=== PATIENT | male | born 1950 | race Caucasian/White ===

== ENCOUNTER → 2020-07-08 12:42 | Outpatient (BNVA) | payer OTHER, SELFPAY | PROVIDERS: Family Provider Internal Medicine; PCP Emergency Medicine Emergency Medical Services; Visit Provider Licensed Practical Nurse | DX: G62.9 Polyneuropathy, unspecified (principal); R20.0 Anesthesia of skin; R20.2 Paresthesia of skin | CPT/HCPCS: 99204 ==

== ENCOUNTER → 2020-08-06 10:48 | Outpatient (BNVA) | payer OTHER, SELFPAY | PROVIDERS: Family Provider Internal Medicine; PCP Emergency Medicine Emergency Medical Services; Referring Provider Licensed Practical Nurse; Visit Provider Specialist | DX: R20.0 Anesthesia of skin (principal); R20.2 Paresthesia of skin; G62.9 Polyneuropathy, unspecified | CPT/HCPCS: 95909 ==

== ENCOUNTER → 2020-08-18 12:54 | Outpatient (BNVA) | payer OTHER, SELFPAY | PROVIDERS: Family Provider Internal Medicine; PCP Emergency Medicine Emergency Medical Services; Visit Provider Licensed Practical Nurse | DX: G62.89 Other specified polyneuropathies (principal) | CPT/HCPCS: 99213 ==

== ENCOUNTER 2020-10-20 06:00 | Outpatient (RCR) | payer OTHER, SELFPAY | END 2020-11-05 23:59 | disposition home or self-care (01) | LOC: MPT 06:00 | PROVIDERS: Family Provider Internal Medicine; PCP Emergency Medicine Emergency Medical Services; Referring Provider Emergency Medicine Emergency Medical Services; Visit Provider Emergency Medicine Emergency Medical Services | DX: R20.0 Anesthesia of skin (principal) | CPT/HCPCS: 97110; 97161 ==

== ENCOUNTER → 2021-04-22 15:19 | Outpatient (BNVA) | payer OTHER, SELFPAY | PROVIDERS: Family Provider Internal Medicine; PCP Emergency Medicine Emergency Medical Services; Visit Provider Surgery | DX: L02.214 Cutaneous abscess of groin (principal) | CPT/HCPCS: 88304 ==

== ENCOUNTER → 2022-07-20 12:13 | Outpatient (BNVA) | payer OTHER, SELFPAY | PROVIDERS: Family Provider Internal Medicine; PCP Emergency Medicine Emergency Medical Services; Visit Provider Internal Medicine | DX: E11.9 Type 2 diabetes mellitus without complications (principal); E89.0 Postprocedural hypothyroidism; E78.2 Mixed hyperlipidemia; G62.9 Polyneuropathy, unspecified; E53.8 Deficiency of other specified B group vitamins; R22.1 Localized swelling, mass and lump, neck; E66.9 Obesity, unspecified; Z68.33 Body mass index [BMI] 33.0-33.9, adult; Z79.84 Long term (current) use of oral hypoglycemic drugs; Z79.4 Long term (current) use of insulin | CPT/HCPCS: 36415; 80053; 80061; 82306; 82607; 83036; 84439; 84443; 99214 ==

== ENCOUNTER 2022-09-01 15:16 | Outpatient (CLI) | payer OTHER, SELFPAY ==
--- NOTE | 2022-09-01 15:15 | CT_ITS ---
WS: [id number] CT NECK WITH CONTRAST HISTORY: neck mass TECHNIQUE: Contiguous 5 mm axial images are performed through the neck with intravenous contrast. Sag ittal and coronal reformats are also submitted. All CT scans at [facility] use at least one o f these dose optimization techniques: automated exposure control; mA and/or kV adjustment per patient size (includes targeted exams where dose is matched to clinical indication); or iterative reconstruc tion. CONTRAST: CONTRAST: Omnipaque 350; 95 mL IV. DLP: 295.23 mGy.cm COMPARISON: None available. Markers are placed in the areas of palpable abnormalities. These markers are placed along the inferio r RIGHT neck near the level of the hyoid bone and cricoid. There are no underlying masses. These palp able areas correspond to prominent fat pads. There are a few adjacent small vessels which are partial ly calcified. There is asymmetry and increased soft tissue in the LEFT vallecula extending to the glossoepiglottic fold. There is mild enhancement and near complete filling of the vallecula. No additional abnormality . Nasal and oropharynx are negative. Torus tubarius and fossa of Rosenmuller and parapharyngeal fat are normal. No significant lymphadenopathy is identified. Small atrophic thyroid. No significant amount of thyroid tissue is identified. No history of prior re moval. The parotid and submandibular glands are negative. Moderate spondylitic changes throughout the cervical spine. Visualized portions of the skull base demonstrate no abnormalities. Orbits and globes are within norm al limits. No soft tissue masses. Mucous retention cysts in the RIGHT maxillary sinus. No air-fluid levels. Paraseptal emphysematous changes at the lung apices. Extensive atherosclerotic calcification within the visualized aorta and great vessels. At least moder ate calcification involving the carotid bifurcations and proximal internal carotid arteries. CT/CT neck w con* [id number] Impression: 1. Palpable areas along the inferior bilateral neck corresponds to prominent f at pads. 2. Soft tissue thickening with mild enhancement filling the LEFT vallecula ext ending to the glossoepiglottic fold. 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 Direct visualization recommended. 3. No adenopathy. 4. Moderate atherosclerotic changes within the visualized aorta and carotid ar teries.
[2022-09-01] MEDS: iohexol 350 mg/mL 100 mL Btl IV (17:17)
== END 2022-09-01 15:17 | disposition home or self-care (01) ==
LOC: RAD 15:16
PROVIDERS: Family Provider Internal Medicine; PCP Emergency Medicine Emergency Medical Services; Visit Provider Internal Medicine
DX: R22.1 Localized swelling, mass and lump, neck (principal)
CPT/HCPCS: 70491

== ENCOUNTER → 2022-10-19 13:25 | Outpatient (BNVA) | payer OTHER, SELFPAY | PROVIDERS: Family Provider Internal Medicine; PCP Emergency Medicine Emergency Medical Services; Visit Provider Internal Medicine | DX: E11.9 Type 2 diabetes mellitus without complications (principal); E89.0 Postprocedural hypothyroidism; R20.0 Anesthesia of skin; R20.2 Paresthesia of skin; E78.2 Mixed hyperlipidemia; G62.9 Polyneuropathy, unspecified; E53.8 Deficiency of other specified B group vitamins; E66.9 Obesity, unspecified; R22.1 Localized swelling, mass and lump, neck; Z68.34 Body mass index [BMI] 34.0-34.9, adult; Z79.84 Long term (current) use of oral hypoglycemic drugs; Z79.4 Long term (current) use of insulin | CPT/HCPCS: 99214 ==

== ENCOUNTER → 2022-12-19 12:37 | Outpatient (BNVA) | payer OTHER, SELFPAY | PROVIDERS: Family Provider Internal Medicine; PCP Emergency Medicine Emergency Medical Services; Visit Provider Otolaryngology | DX: Z71.1 Person with feared health complaint in whom no diagnosis is made (principal); J38.7 Other diseases of larynx | CPT/HCPCS: 31575; 99203 ==

== ENCOUNTER → 2023-02-16 14:15 | Outpatient (BNVA) | payer OTHER, SELFPAY | PROVIDERS: Family Provider Internal Medicine; PCP Emergency Medicine Emergency Medical Services; Visit Provider Internal Medicine | DX: E11.42 Type 2 diabetes mellitus with diabetic polyneuropathy (principal); E89.0 Postprocedural hypothyroidism; R20.0 Anesthesia of skin; R20.2 Paresthesia of skin; E78.2 Mixed hyperlipidemia; E53.8 Deficiency of other specified B group vitamins; E66.9 Obesity, unspecified; R22.1 Localized swelling, mass and lump, neck; Z79.4 Long term (current) use of insulin; Z79.84 Long term (current) use of oral hypoglycemic drugs; Z68.35 Body mass index [BMI] 35.0-35.9, adult | CPT/HCPCS: 99214 ==

== ENCOUNTER → 2023-03-03 08:30 | Outpatient (BNVA) | payer OTHER, SELFPAY | PROVIDERS: Family Provider Internal Medicine; PCP Emergency Medicine Emergency Medical Services; Visit Provider Internal Medicine | DX: E11.42 Type 2 diabetes mellitus with diabetic polyneuropathy (principal); E78.2 Mixed hyperlipidemia; E53.8 Deficiency of other specified B group vitamins; E66.9 Obesity, unspecified; R22.1 Localized swelling, mass and lump, neck; E89.0 Postprocedural hypothyroidism; Z79.890 Hormone replacement therapy; Z79.84 Long term (current) use of oral hypoglycemic drugs; Z79.4 Long term (current) use of insulin; Z68.34 Body mass index [BMI] 34.0-34.9, adult | CPT/HCPCS: 36415; 84439; 84443; 84480; 99214 ==

== ENCOUNTER 2023-04-17 09:27 | Outpatient (CLI) | payer OTHER, SELFPAY ==
--- NOTE | 2023-04-17 09:41 | USCV_ITS ---
Barrett Lara Age: 72 Gender: M : 1950 Exam Date: 04/17/2023 09:59 Ordering Phys: Kane Christine DO Technologist: CADY Exam Location: [facility] [place] Indication: AAA SCREENING HISTORY: Diameter (cm) AP x Transverse x Length Velocity (cm/s) Waveform Prox Aorta: 2.28 x 1.97 x 53.70 Mid Aorta: 2.80 x 2.46 x 80.60 Distal Aorta: 1.49 x 2.16 x 68.80 Right Iliac Prox: 1.00 x 1.57 x 124.60 Left Iliac Prox: 0.85 x 1.05 x 131.10 Stent Prox Landing x x Aneurysmal Sac Max x x Lt Lat Sac Dim Rt Lat Sac Dim Stent Dist Landing x x Right Iliac Stent x x Left Iliac Stent x x Right Renal Art Left Renal Art FINDINGS: Comparison: none available. A complete assessment of the abdominal aorta was not possible. Ectatic abdominal aorta with evidence of atherosclerotic plaque noted. No evidence of abdominal aortic aneurysm. CONCLUSIONS Limited by body habitus. No AAA seen. Dr. Shannon Wilcox DO (Electronically Signed) Final Date: 17 April 2023 11:23 S
== END 2023-04-17 09:28 | disposition home or self-care (01) ==
LOC: RAD 09:28
PROVIDERS: PCP Emergency Medicine Emergency Medical Services; Visit Provider Emergency Medicine Emergency Medical Services
DX: Z13.6 Encounter for screening for cardiovascular disorders (principal); I77.811 Abdominal aortic ectasia; I70.0 Atherosclerosis of aorta
CPT/HCPCS: 76706

== ENCOUNTER → 2023-06-06 14:36 | Outpatient (BNVA) | payer OTHER, SELFPAY | PROVIDERS: PCP Emergency Medicine Emergency Medical Services; Visit Provider Internal Medicine Pulmonary Disease | DX: J30.2 Other seasonal allergic rhinitis (principal); Z87.891 Personal history of nicotine dependence; J44.9 Chronic obstructive pulmonary disease, unspecified; Z12.2 Encounter for screening for malignant neoplasm of respiratory organs; G47.33 Obstructive sleep apnea (adult) (pediatric); J98.6 Disorders of diaphragm | CPT/HCPCS: 36415; 82785; 86003; 99204 ==

== ENCOUNTER → 2023-08-17 11:08 | Outpatient (BNVA) | payer OTHER, SELFPAY | PROVIDERS: PCP Emergency Medicine Emergency Medical Services; Visit Provider Internal Medicine | DX: E11.42 Type 2 diabetes mellitus with diabetic polyneuropathy; E89.0 Postprocedural hypothyroidism; E78.2 Mixed hyperlipidemia; E53.8 Deficiency of other specified B group vitamins; E66.9 Obesity, unspecified; Z79.84 Long term (current) use of oral hypoglycemic drugs; Z79.4 Long term (current) use of insulin; Z68.35 Body mass index [BMI] 35.0-35.9, adult | CPT/HCPCS: 99214 ==

== ENCOUNTER 2023-09-11 10:21 | Outpatient (CLI) | payer OTHER, SELFPAY ==
--- NOTE | 2023-09-11 10:31 | XRR_ITS ---
PROCEDURE INFORMATION: Exam: XR Left Hand Exam date and time: 09/11/2023 10:35 AM Age: 72 years old Clinical indication: Screening exam; Pre mri; Patient HX: Patient thinks a piece of metal is in left thumb. Patient believes left thumb is infected x 1 year; Additional info: ? Metallic foreign body/prior to mri TECHNIQUE: Imaging protocol: Radiologic exam of the left hand. Views: 3 or more views. COMPARISON: No relevant prior studies available. FINDINGS: Bones/joints: There is advanced osteoarthritis noted at the 1st carpometacarpal joint and at the 5th DIP joint. Soft tissues: There is no evidence of radiopaque foreign body. XR/XR hand LT 2V [id number] IMPRESSION: No evidence of metallic foreign body.
== END 2023-09-11 10:22 | disposition home or self-care (01) ==
PROVIDERS: PCP Emergency Medicine Emergency Medical Services; Visit Provider Specialist
DX: S60.552A Superficial foreign body of left hand, initial encounter (principal); X58.XXXA Exposure to other specified factors, initial encounter
CPT/HCPCS: 73120

== ENCOUNTER 2023-10-09 12:04 | Emergency (ER) | payer OTHER, SELFPAY ==
[2023-10-09 12:11] VITALS: BP 130/73; PULSE 53; RESP 18; TEMP 36.4; O2SAT 96; BMI 40.7
--- NOTE | 2023-10-09 13:20 | W.ED.SKABFB ---
HPI - Skin/Abscess/Foreign Bdy General: Chief complaint: Skin/Abscess/Foreign Body Stated complaint: possible spider bite Time Seen by Provider: 10/09/23 12:55 Source: patient Mode of arrival: ambulatory Limitations: no limitations History of Present Illness: Patient is a 72-year-old male who presents to ED today with what he believes is a spider bite. Patient states he has had a cyst to the top portion of his right shoulder/clavicular region for years . He feels like the spider bit him right next to the cyst as it is now red, tender, and swollen. [facility] which he has yet to fill. They did not perform incision and drainage. He has no other complaints at this time. MD complaint: abscess/boil Onset (ago): day(s) Tetanus up to date: yes Location: chest Severity: moderate Pain Consistency: constant Relieving factors: none Exacerbating factors: none Associated symptoms: Reports no associated symptoms; Deny chills or fever(s) Treatments prior to arrival: attempted to drain pus at home Review of Systems Const: Denies: fever(s), chills, body aches, fatigue or malaise Skin/Breast: Reports: other (abscess) [facility] ED PFSH: Medical History Type 2 diabetes mellitus History of cataract 2020 Diabetes Axonal sensorimotor neuropathy Peripheral neuropathy Essential hypertension Hyperlipidemia Gout COPD (chronic obstructive pulmonary disease) Hypothyroidism Sleep apnea Obesity Type 2 diabetes mellitus Surgical History H/O adenoidectomy History of colonoscopy 2012 History of tonsillectomy 1957 No pertinent past surgical history Family History Father No problems noted. Mother No problems noted. Other Family history non-contributory Social History Smoking and tobacco/nicotine status: former use of tobacco/nicotine Quit status (tobacco/nicotine): has quit using Year quit tobacco: 2014 Former quit date comment: 1-2 ppd X 40 years Alcohol intake: current Alcohol intake frequency: holidays/special occasions only Substance/Drug Use: never Household members: children Marital status: Current occupational status: retired Physical Exam Const: COMMON NORMALS: no acute distress, patient oriented x3, no limitations and alert NUTRITIONAL APPEARANCE: obese ORIENTATION/CONSCIOUSNESS: Yes awake, Yes oriented to person, Yes oriented to place and Yes oriented to time Neck/C-Spine: NECK IMAGES: 1. infected sebaceous cyst Resp: COMMON NORMALS: normal respiratory effort and clear to auscultation bilaterally AUSCULTATION: clear to auscultation bilaterally Cardio: COMMON NORMALS: regular rate and regular rhythm RATE: regular rate RHYTHM: regular rhythm Neuro: COMMON NORMALS: patient oriented x3 SENSORIUM/ORIENTATION: Yes alert, Yes oriented to person, Yes oriented to place and Yes oriented to time Skin: NARRATIVE SKIN EXAM: Infected sebaceous cyst to right superior shoulder/clavicular region Procedures Abscess I/D Site: chest Side (if applicable): right Local Anesthetic: lidocaine 1% Amount of anesthesia used (mL): 3.0 Technique: incised with #11 blade Amount of fluid expressed (mL): 6.0 Packing used?: plain Course Vital Signs: Vital signs: Vital Signs Temperature 97.6 F 10/09/23 12:11 Pulse Rate 48 L 10/09/23 14:22 Respiratory Rate 18 10/09/23 12:11 Blood Pressure 125/74 10/09/23 14:22 Pulse Oximetry 97 10/09/23 14:22 Oxygen Delivery Me thod Room Air 10/09/23 12:11 MDM - Skin/Abscess/Foreign Bdy Medicial Decision Making Patient here with an infected sebaceous cyst. This was incised and drained. He has a prescription for doxycycline that he is yet to fill. Recommend he fill this and we will get him set up with general surgery and they can discuss elective cyst removal. No radiology studies performed this visit Discharge Plan Discharge Patient Disposition: Home Clinical Impression: Infected sebaceous cyst Condition: Stable Prescriptions: No Action acyclovir 800 mg tablet 800 mg PO TID ipratropium-albuterol 0.5 mg-3 mg(2.5 mg base)/3 mL solution for nebulization 3 ml INHALATION Q6H PRN albuterol sulfate 90 mcg/actuation HFA aerosol inhaler 2 puff INHALATION Q6H PRN allopurinol 300 mg tablet 150 mg PO DAILY budesonide-formoterol 160-4.5 mcg/actuation HFA aerosol inhaler 2 puff INHALATION BID cholecalciferol (vitamin D3) 25 mcg (1,000 unit) capsule 25 mcg PO BID clonidine HCl 0.1 mg tablet 0.05 mg PO BID diltiazem HCl 180 mg capsule,extended release 24hr 180 mg PO DAILY empagliflozin 25 mg tablet 12.5 mg PO DAILY fluticasone propionate [Allergy Relief (fluticasone)] 50 mcg/actuation spray,suspension 2 spray INTRANASAL DAILY Rx Instructions: administer into each nostril furosemide 40 mg tablet 40 mg PO DAILY gabapentin 100 mg capsule 200 mg PO BID ibuprofen 800 mg tablet 800 mg PO TID lidocaine 5 % ointment 1 applic TOPICAL DAILY metformin 1,000 mg tablet 1,000 mg PO BID metoprolol tartrate 100 mg tablet 50 mg PO BID montelukast 10 mg tablet 10 mg PO DAILY pioglitazone 30 mg tablet 30 mg PO DAILY pravastatin 20 mg tablet 10 mg PO DAILY sildenafil 100 mg tablet 50 mg PO DAILY PRN Rx Instructions: administer 30 minutes to 4 hours before activity mecobalamin (vitamin B12) 1,000 mcg tablet,chewable 1,000 mcg PO DAILY (DME) pen needle, diabetic [BD Ultra-Fine Micro Pen Needle] 32 gauge x 1/4 needle See Rx Instructions .Route Qty: 50 0RF Rx Instructions: As directed Breztri Aerosphere 160-9-4.8 mcg/actuation HFA aerosol inhaler 2 inh inhalation BID Breztri Aerosphere 160-9-4.8 mcg/actuation HFA aerosol inhaler 2 inh inhalation BID Qty: 10.7 6RF (DME) Afflovest See Rx Instructions .Route .MEDSUPPLY Qty: 1 0RF Rx Instructions: As directed prednisone 10 mg tablet 10 mg PO DAILY 10 Days Qty: 10 0RF Jardiance 25 mg tablet 25 mg PO DAILY Qty: 90 3RF Rx Instructions: Take one tablet by mouth daily. glipizide 10 mg tablet 10 mg PO BID Qty: 180 3RF Rx Instructions: Take one tablet twice a day by mouth. ketoconazole 2 % foam 1 applic topical DAILY 14 Days Qty: 50 0RF Rx Instructions: Apply daily to the affected area and surrounding area for 2 weeks. insulin glargine [Lantus Solostar U-100 Insulin] 100 unit/mL (3 mL) insulin pen 30 unit SUBCUT DAILY 90 Days Qty: 27 3RF levothyroxine 125 mcg tablet 125 mcg PO DAILY Qty: 90 0RF Discharge Orders: Discharge ED (Routine); Ordered 10/09/23 Ordered By: Katlin Burgess Referrals: Kane Christine, [Primary Care Provider] - Activity Restrictions/Additional Instructions: Fill and begin taking your doxycycline that you are prescribed. You may remove the packing in 72 hours. We will have you follow-up with general surgery to discuss elective cyst removal. Coding Level of Care Code ED Bridge Expert for Kristine Christina
[2023-10-09 14:22] VITALS: BP 125/74; PULSE 48; O2SAT 97
--- NOTE | 2023-10-10 07:41 | DCPLANNER ---
message sent to gen surg for a follow up on a infected sebaceous cyst.
== END 2023-10-09 14:15 | disposition home or self-care (01) ==
PROVIDERS: Emergency Provider Physician Assistant; PCP Emergency Medicine Emergency Medical Services
DX: L72.3 Sebaceous cyst (principal); Z79.84 Long term (current) use of oral hypoglycemic drugs; Z79.4 Long term (current) use of insulin; Z87.891 Personal history of nicotine dependence; E11.42 Type 2 diabetes mellitus with diabetic polyneuropathy; I10 Essential (primary) hypertension; E78.5 Hyperlipidemia, unspecified; J44.9 Chronic obstructive pulmonary disease, unspecified
CPT/HCPCS: 10060; 87070; 87075; 87205; 99283

== ENCOUNTER → 2023-10-16 10:10 | Outpatient (BNVA) | payer OTHER, SELFPAY | PROVIDERS: PCP Emergency Medicine Emergency Medical Services; Visit Provider Surgery | DX: L72.3 Sebaceous cyst (principal); L08.9 Local infection of the skin and subcutaneous tissue, unspecified | CPT/HCPCS: 99204; 99214 ==

== ENCOUNTER → 2023-10-24 12:26 | Outpatient (BNVA) | payer OTHER, SELFPAY | PROVIDERS: PCP Emergency Medicine Emergency Medical Services; Visit Provider Surgery | DX: E11.9 Type 2 diabetes mellitus without complications (principal); L72.3 Sebaceous cyst; L08.9 Local infection of the skin and subcutaneous tissue, unspecified | CPT/HCPCS: 99214 ==

== ENCOUNTER → 2023-10-31 10:47 | Outpatient (BNVA) | payer OTHER, SELFPAY | PROVIDERS: PCP Emergency Medicine Emergency Medical Services; Visit Provider Surgery | DX: L72.3 Sebaceous cyst (principal); L08.9 Local infection of the skin and subcutaneous tissue, unspecified | CPT/HCPCS: 99213 ==

== ENCOUNTER 2023-11-08 10:36 | Outpatient (CLI) | payer OTHER, SELFPAY ==
--- NOTE | 2023-11-08 10:42 | MR_ITS ---
WS: [id number] MRI HEAD WITH CONTRAST WITH ATTENTION TO THE INTERNAL AUDITORY CANALS TECHNIQUE: Sagittal T1, T2 axial, T2 axial flair, axial susceptibility weighted imaging, axial diffus ion weighted images, and coronal T2 images were obtained. Pre and post T1 axial and post T1 coronal i mages. ADC and FSPGR images. Post gadolinium images with attention to the internal auditory canals. A xial fiesta imaging. CLINICAL INFORMATION: TINNITUS,UNSPECIFIED EAR/SENSORINEURAL HEARING LOSS,BILAT COMPARISON: None. FINDINGS: No evidence of restricted diffusion to suggest acute ischemia. Ventricular system and basal cisterns are patent. Mild small vessel changes. Moderate parenchymal volume loss. Normal posterior fossa. Norm al vascular flow voids at the skull base. No extra-axial fluid collections. No hemosiderin on the susceptibly weighted images. Proximal 7th and 8th cranial nerves are normal in appearance. No evidence of enhancing IAC or CP angle mass. Normal dural venous sinuses. No other susp icious findings. IMPRESSION: 1. No evidence of restricted diffusion to suggest acute ischemia. 2. Mild small vessel changes with moderate parenchymal volume loss. 3. Proximal 7th and 8th cranial nerves are normal in appearance. No evidence of enhancing IAC or CP angle mass. 4. Mastoid air cells are well aerated. 5. Retention cysts RIGHT maxillary sinus.
[2023-11-08] MEDS: gadobenate dimeglumine 20 mL vial IV (11:52)
[2023-11-08 12:39] LABS: Estmated Average Glucose 183
[2023-11-08 12:59] LABS: Alanine Aminotransferase 14 U/L (0-41); Albumin Level 4.2 g/dL (3.5-5.2); Alkaline Phosphatase 68 U/L (40-130); Anion Gap 12.3 (5-19); Aspartate Amino Transferase 18 U/L (0-40); Blood Urea Nitrogen 11 mg/dL (8-23); Carbon Dioxide 34 mmol/L (22-29); Chloride 85 mmol/L (98-107); Chol HDL Ratio 2.31 mg/dL (1.0-5.00); Cholesterol 111 mg/dL (0-200); Free T4 Free Thyroxine 1.39 ng/dL (0.82-1.77); Globulin 2.8 g/dL (1.3-4.6); Glucose 172 mg/dL (65-115); HDL Cholesterol 48 mg/dL (60-100); LDL Cholesterol Calculated 43 mg/dL (50-129); Osmolality Calculated 267 mOsm/kg (285-295); Potassium 4.3 mmol/L (3.5-5.1); Sodium 127 mmol/L (136-145); Total Bilirubin 0.4 mg/dL (0.15-1.2); Triglycerides 99 mg/dL (0-150)
== END 2023-11-08 10:37 | disposition home or self-care (01) ==
LOC: RAD 10:37
PROVIDERS: Internal Medicine; PCP Emergency Medicine Emergency Medical Services; Visit Provider Specialist
DX: H93.12 Tinnitus, left ear (principal); H90.3 Sensorineural hearing loss, bilateral; E11.9 Type 2 diabetes mellitus without complications; J34.1 Cyst and mucocele of nose and nasal sinus
CPT/HCPCS: 36415; 70553; 80053; 80061; 83036; 84439; 84443; A9577

== ENCOUNTER → 2023-11-09 10:07 | Outpatient (BNVA) | payer OTHER, SELFPAY | PROVIDERS: PCP Emergency Medicine Emergency Medical Services; Referring Provider Internal Medicine; Visit Provider Internal Medicine | DX: E11.9 Type 2 diabetes mellitus without complications (principal) | CPT/HCPCS: 82043 ==

== ENCOUNTER → 2024-01-12 09:52 | Outpatient (BNVA) | payer OTHER, SELFPAY | PROVIDERS: PCP Emergency Medicine Emergency Medical Services; Visit Provider Internal Medicine Pulmonary Disease | DX: J44.9 Chronic obstructive pulmonary disease, unspecified (principal); J43.2 Centrilobular emphysema; Z12.2 Encounter for screening for malignant neoplasm of respiratory organs; G47.33 Obstructive sleep apnea (adult) (pediatric); J98.6 Disorders of diaphragm | CPT/HCPCS: 99214 ==

== ENCOUNTER → 2024-02-22 10:59 | Outpatient (BNVA) | payer OTHER, SELFPAY | PROVIDERS: PCP Emergency Medicine Emergency Medical Services; Visit Provider Internal Medicine | DX: E03.9 Hypothyroidism, unspecified (principal); E78.2 Mixed hyperlipidemia; E66.9 Obesity, unspecified; E11.9 Type 2 diabetes mellitus without complications; Z79.890 Hormone replacement therapy; Z68.34 Body mass index [BMI] 34.0-34.9, adult; Z79.84 Long term (current) use of oral hypoglycemic drugs | CPT/HCPCS: 36415; 80053; 80061; 82044; 83036; 84439; 84443; 99214 ==

== ENCOUNTER → 2024-03-15 11:04 | Outpatient (BNVA) | payer OTHER, SELFPAY | PROVIDERS: PCP Emergency Medicine Emergency Medical Services; Visit Provider Internal Medicine Pulmonary Disease | DX: J43.2 Centrilobular emphysema (principal); G47.33 Obstructive sleep apnea (adult) (pediatric); J98.6 Disorders of diaphragm; J44.9 Chronic obstructive pulmonary disease, unspecified; Z99.89 Dependence on other enabling machines and devices | CPT/HCPCS: 99214 ==

== ENCOUNTER → 2024-04-17 11:31 | Outpatient (BNVA) | payer OTHER, SELFPAY | PROVIDERS: PCP Emergency Medicine Emergency Medical Services; Visit Provider Internal Medicine | DX: E03.9 Hypothyroidism, unspecified (principal) | CPT/HCPCS: 36415; 84439; 84443 ==

== ENCOUNTER 2024-07-18 12:42 | Outpatient (CLI) | payer OTHER, SELFPAY ==
[2024-07-18 13:21] LABS: Estmated Average Glucose 235; Hemoglobin A1C 9.8 % (4.0-6.0)
[2024-07-18 13:21] LABS: Creatinine Urine, Random 164 mg/dL (39-259); Microalbumin Random Urine 39 ug/dL (0-20)
[2024-07-18 13:23] LABS: Microalbum Creatinine Ratio Ur 238 mg/dL (0-20)
[2024-07-18 13:29] LABS: Alanine Aminotransferase 11 U/L (0-41); Albumin Level 3.9 g/dL (3.5-5.2); Alkaline Phosphatase 84 U/L (40-130); Anion Gap 11.5 (5-19); Aspartate Amino Transferase 11 U/L (0-40); Blood Urea Nitrogen 13 mg/dL (8-23); Calcium 9.7 mg/dL (8.5-10.5); Carbon Dioxide 34 mmol/L (22-29); Chloride 93 mmol/L (98-107); Chol HDL Ratio 2.02 mg/dL (1.0-5.00); Cholesterol 103 mg/dL (0-200); Free T4 Free Thyroxine 1.46 ng/dL (0.82-1.77); Globulin 3.2 g/dL (1.3-4.6); Glucose 67 mg/dL (65-115); HDL Cholesterol 51 mg/dL (60-100); LDL Cholesterol Calculated 28 mg/dL (50-129); LDL HDL Ratio 0.55 RATIO (0.00-3.22); Osmolality Calculated 278 mOsm/kg (285-295); Potassium 3.5 mmol/L (3.5-5.1); Sodium 135 mmol/L (136-145); Thyroid Stimulating Hormone 4.65 uIU/mL (0.27-4.20); Total Bilirubin 0.4 mg/dL (0.15-1.2); Total Protein 7.1 g/dL (6.6-8.7); Triglycerides 121 mg/dL (0-150)
[2024-07-18 14:24] LABS: 25 Hydroxy Vitamin D 21 ng/mL (30-100); Vitamin B12 232 pg/mL (232-1245)
== END 2024-07-18 12:43 | disposition home or self-care (01) ==
LOC: LAB 12:43
PROVIDERS: PCP Emergency Medicine Emergency Medical Services; Visit Provider Internal Medicine
DX: E03.9 Hypothyroidism, unspecified (principal); E55.9 Vitamin D deficiency, unspecified; E53.8 Deficiency of other specified B group vitamins; E11.42 Type 2 diabetes mellitus with diabetic polyneuropathy; E11.65 Type 2 diabetes mellitus with hyperglycemia; Z79.4 Long term (current) use of insulin; Z79.84 Long term (current) use of oral hypoglycemic drugs; E66.9 Obesity, unspecified; Z68.32 Body mass index [BMI] 32.0-32.9, adult
CPT/HCPCS: 36415; 80053; 80061; 82044; 82306; 82607; 83036; 84439; 84443; 99214

== ENCOUNTER 2024-09-20 09:02 | Outpatient (CLI) | payer OTHER, SELFPAY ==
--- NOTE | 2024-09-20 | ECG_ITS ---
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 Interpretive Statements Lung unchanged pre/post procedure; Intraprocedure shortess of breath; Symptoms resoled by discharge PROCEDURE: At the baseline, the EKG revealed normal sinus rhythm with a right bundle branch block pattern.. The baseline heart was 79 bpm with a blood pressue of 150/75 mm of Hg Lexiscan was infused over a period of 20 seconds. A total of 0.4 milligrams of Lexiscan was infused. The stress phase was continued for a total of 5 minutes. Heart rate at the end of the stress phase was 80 bpm with a blood pressure 146/73 mm of Hg. The EKG at the peak infusion revealed no significant changes. Sestamibi was injected 20 seconds after the Lexiscan infusion. Heart rate at the end of the recovery phase was left anterior descending artery bpm with a blood pressure of 139/70 mm of Hg. CONCLUSION: 1. No significant EKG changes with the LexiScan infusion 2. No LexiScan induced chest pain or cardiac arrhythmia 3. Normal blood pressure and heart rate response 4. Sestamibi/sestamibi perfusion scan pending; see separate report. Electronically Signed On 09-21-2024 13:06:47 LIFE INSURANCE UNDERWRITER by Ace Lazaro M.D. [email or web address]
[2024-09-20 09:26] VITALS: BMI 32.8
--- NOTE | 2024-09-20 09:30 | NMCV_ITS ---
NM zacarias perf SPECT r/s* [id number] Barrett Lara Age: 73 Gender: M : 1950 Exam Date: 09/20/2024 09:49 Ordering Phys: Soheila Pringle Technologist: CARMITA Cao Exam Location: [facility] Indications: cp STRESS TEST Please see separate stress test report in [facility] for full findings IMAGE PROTOCOL Rest/Stress 1 Lexiscan Day Radiopharmaceutical Dose (mCi) Administration Site Administered by Rest: Tc-99m 10.7 IV Malathi Fernandez, VINEGAR MAKER Sestamibi Stress:Tc-99m 33 IV Malathi Jim, VINEGAR MAKER Sestamibi Rest: 20-Sep-2024 60 Discovery 630 Stress: 20-Sep-2024 30 Discovery 630 0.4mg Lexiscan. Supine position only as patient was unable to lay prone. SPECT RESULTS Technical Quality: Good Raw Data Analysis: Normal Image Corrections: No attenuation or motion correction applied Summed Stress Score: 0 Summed Rest Score: 0 Summed Difference Score: 0 PERFUSION FINDINGS Uniform myocardial tracer uptake with no significant perfusion abnormalities FUNCTIONAL RESULTS (calculated via Gated SPECT) Stress Image LV EF (%): 67 Stress EDV (mL):102 TID: 0.83 Stress ESV (mL):34 FUNCTIONAL FINDINGS: Segmental wall motion analysis revealing no gross wall motion abnormalities IMPRESSIONS 1, Myocardial perfusion imaging revealing uniform myocardial tracer uptake with no significant Perfusion abnormalities. 2. Normal LV ejection fraction 67%. 3. LV wall motion analysis revealing no gross wall motion abnormalities. 4. Normal LV volume Low probability for coronary ischemia, based on the above findings. No similar previous studies are available for comparison Dr Ace Lazaro MD FACC (Electronically Signed) Final Date: 23 September 2024 13:55 S
[2024-09-20] MEDS: regadenoson 0.4 Mg/5 ml Syringe IVP (10:46)
[2024-09-20 10:53] VITALS: BP 139/70; PULSE 80
== END 2024-09-20 09:03 | disposition home or self-care (01) ==
LOC: CDL 09:03
PROVIDERS: PCP Nurse Practitioner; Visit Provider Nurse Practitioner
DX: R06.00 Dyspnea, unspecified (principal); R06.02 Shortness of breath
CPT/HCPCS: 36415; 78452; 93017; 96374; A9500; J2785

== ENCOUNTER → 2024-10-15 16:24 | Outpatient (BNVA) | payer OTHER, SELFPAY | PROVIDERS: PCP Nurse Practitioner; Visit Provider Internal Medicine Cardiovascular Disease | DX: R06.02 Shortness of breath (principal); E03.9 Hypothyroidism, unspecified; E55.9 Vitamin D deficiency, unspecified; E53.8 Deficiency of other specified B group vitamins; R07.89 Other chest pain; E78.2 Mixed hyperlipidemia; E11.9 Type 2 diabetes mellitus without complications | CPT/HCPCS: 36415; 80048; 80053; 80061; 82306; 82607; 83880; 84439; 84443; 99204 ==

== ENCOUNTER → 2024-10-23 10:44 | Outpatient (BNVA) | payer OTHER, SELFPAY | PROVIDERS: PCP Nurse Practitioner; Visit Provider Internal Medicine | DX: E11.9 Type 2 diabetes mellitus without complications (principal); E03.9 Hypothyroidism, unspecified; E66.9 Obesity, unspecified; E55.9 Vitamin D deficiency, unspecified; E53.8 Deficiency of other specified B group vitamins | CPT/HCPCS: 99214 ==

== ENCOUNTER 2024-12-03 10:41 | Outpatient (CLI) | payer OTHER, SELFPAY ==
--- NOTE | 2024-12-03 11:15 | USCV_ITS ---
Barrett Lara Age: 74 Gender: M : 1950 Exam Date: 12/03/2024 11:26 Ordering Phys: Ace Lazaro MD ([email or web address]) Technologist: [place] [facility] [place]: sob BP: 140 / 68 HR: 59 Rhythm: Sinus Technical Quality: Adequate MEASUREMENTS (Male / Female) Normal Values 2D ECHO LVOT Diameter 2.1 cm LV Ejection Fraction MOD 4C 60.0 % LV Ejection Fraction MOD 2C 57.6 % LV Ejection Fraction 2C AL 60.3 % LA Diameter 4.0 cm RA Systolic Volume 4C AL 55.0 ml RA Systolic Volume 4C MOD 53.3 ml LA Sys Volume AL 83.0 cm cubed LA Sys Volume Index AL 39.2 cm cubed/m squared Aorta at Sinotubular Diameter 2.2 cm IVC Diameter 2.3 cm M-MODE LA Ao Ratio MM 1.7 AV Cusp Separation MM 1.7 cm DOPPLER AV Peak Velocity 100.0 cm/s LVOT Peak Velocity 69.0 cm/s AV Area Cont Eq vti 2.3 cm squared AV Area Cont Eq pk 2.3 cm squared MV Peak Velocity 73.0 cm/s MV Area PHT 4.2 cm squared Mitral E to A Ratio 1.1 TR Peak Velocity 381.5 cm/s TR Peak Gradient 58.2 mmHg TR Mean Velocity 234.0 cm/s TR Mean Gradient 28.3 mmHg TR Velocity Time Integral 121.0 cm TV Peak E Velocity 45.0 cm/s PV Peak Velocity 67.0 cm/s FINDINGS Left Ventricle LV systolic function is normal with EF 55 to 60%. No regional wall motion abnormalities are seen. Right Ventricle Normal in size and function Right Atrium Normal in size. Interatrial septum is aneurysmal Left Atrium Dilated Mitral Valve Structurally normal mitral valve. Moderate mitral regurgitation. Aortic Valve Structurally normal aortic valve. No significant stenosis or regurgitation. Tricuspid Valve Mild tricuspid regurgitation. RVSP is 55 to 60 mmHg. This is consistent with moderate pulmonary hypertension Pulmonic Valve Not well visualized Pericardium Normal Aorta Normal in size IVC Appears to be normal CONCLUSIONS LV systolic function is normal with EF of 55-60% Interatrial septum is aneurysmal Left atrial dilation Moderate mitral regurgitation Mild tricuspid regurgitation Moderate pulmonary hypertension No comparison studies are available. Rafael Cazares MD (Electronically Signed) Final Date: 08 December 2024 13:49 S
== END 2024-12-03 10:42 | disposition home or self-care (01) ==
LOC: RAD 10:41
PROVIDERS: PCP Nurse Practitioner; Visit Provider Internal Medicine Cardiovascular Disease
DX: R06.09 Other forms of dyspnea (principal); R93.1 Abnormal findings on diagnostic imaging of heart and coronary circulation; I34.0 Nonrheumatic mitral (valve) insufficiency; I07.1 Rheumatic tricuspid insufficiency; I27.20 Pulmonary hypertension, unspecified
CPT/HCPCS: 93306

== ENCOUNTER 2025-01-15 10:07 | Outpatient (CLI) | payer OTHER, SELFPAY ==
[2025-01-15 11:03] LABS: Estmated Average Glucose 258; Hemoglobin A1C 10.6 % (4.0-6.0)
[2025-01-15 11:06] LABS: Alanine Aminotransferase 12 U/L (0-41); Alkaline Phosphatase 103 U/L (40-130); Aspartate Amino Transferase 13 U/L (0-40); Blood Urea Nitrogen 10 mg/dL (8-23); Calcium 9.1 mg/dL (8.5-10.5); Carbon Dioxide 32 mmol/L (22-29); Chloride 93 mmol/L (98-107); Chol HDL Ratio 2.55 mg/dL (1.0-5.00); Cholesterol 97 mg/dL (0-200); Globulin 3.1 g/dL (1.3-4.6); Glucose 224 mg/dL (65-115); HDL Cholesterol 38 mg/dL (60-100); LDL Cholesterol Calculated 40 mg/dL (50-129); LDL HDL Ratio 1.05 RATIO (0.00-3.22); Osmolality Calculated 280 mOsm/kg (285-295); Sodium 132 mmol/L (136-145); Total Bilirubin 0.5 mg/dL (0.15-1.2); Total Protein 7.1 g/dL (6.6-8.7); Triglycerides 95 mg/dL (0-150)
[2025-01-15 11:09] LABS: Creatinine Urine, Random 17 mg/dL (39-259); Microalbumin Random Urine 3 ug/dL (0-20)
[2025-01-15 11:17] LABS: Microalbum Creatinine Ratio Ur 176 mg/dL (0-20)
== END 2025-01-15 10:08 | disposition home or self-care (01) ==
PROVIDERS: PCP Nurse Practitioner; Visit Provider Internal Medicine
DX: E11.9 Type 2 diabetes mellitus without complications (principal); E03.9 Hypothyroidism, unspecified
CPT/HCPCS: 36415; 80053; 80061; 82044; 83036

== ENCOUNTER → 2025-01-21 08:58 | Outpatient (BNVA) | payer OTHER, SELFPAY | PROVIDERS: PCP Nurse Practitioner; Visit Provider Internal Medicine | DX: E55.9 Vitamin D deficiency, unspecified (principal); E03.9 Hypothyroidism, unspecified; E53.8 Deficiency of other specified B group vitamins; E11.9 Type 2 diabetes mellitus without complications; E66.9 Obesity, unspecified | CPT/HCPCS: 99214 ==

== ENCOUNTER → 2025-02-21 09:56 | Outpatient (BNVA) | payer OTHER, SELFPAY | PROVIDERS: PCP Nurse Practitioner; Visit Provider Nurse Practitioner Family | DX: I27.20 Pulmonary hypertension, unspecified (principal) | CPT/HCPCS: 99213 ==

== ENCOUNTER → 2025-04-22 09:17 | Outpatient (BNVA) | payer OTHER, SELFPAY | PROVIDERS: PCP Nurse Practitioner; Visit Provider Internal Medicine | DX: E03.9 Hypothyroidism, unspecified (principal); E55.9 Vitamin D deficiency, unspecified; E53.8 Deficiency of other specified B group vitamins; E11.9 Type 2 diabetes mellitus without complications; E66.9 Obesity, unspecified | CPT/HCPCS: 99214 ==

== ENCOUNTER → 2025-06-10 16:34 | Outpatient (BNVA) | payer OTHER, SELFPAY | PROVIDERS: PCP Nurse Practitioner; Visit Provider Internal Medicine Cardiovascular Disease | DX: R06.02 Shortness of breath (principal); R07.89 Other chest pain; E78.2 Mixed hyperlipidemia; E03.9 Hypothyroidism, unspecified; E11.9 Type 2 diabetes mellitus without complications; Z79.4 Long term (current) use of insulin; Z87.891 Personal history of nicotine dependence | CPT/HCPCS: 99214 ==

== ENCOUNTER 2025-07-16 10:49 | Outpatient (CLI) | payer OTHER, SELFPAY ==
--- NOTE | 2025-07-16 10:57 | CT_ITS ---
WS: [id number] LDCT LUNG CANCER SCREENING TECHNIQUE: Noncontrast CT of the chest with coronal and sagittal reformatted images. CLINICAL INFORMATION: HX OF NICOTINE DEPENDENCE COMPARISON: 2022 and 2023 outside examinations DLP: 98.49 mGy.cm DIvol: Mean CTDIvol: 1.90 (mGy) All CT scans at [facility] use at least one of these dose optimization techniques: automated exposure control; mA and/or kV adjustment per patient size (includes targeted exams where dose is matched to clinical indication); or iterative reconstruction. FINDINGS: Advanced chronic emphysematous changes. Bulla formation in the lung apices. LEFT upper lobe nodule measures slightly larger today compared to the prior examinations. This measures 8.0 mm by my measurements today. Recommend further evaluation with PET/CT and recommend 6-month follow-up. Small 3 mm nodule LEFT upper lobe laterally. Tiny micronodule at the LEFT lung apex. Subsegmental atelectasis in the lung bases. A few tiny micronodules RIGHT lower lobe. 5 mm nodule superior segment RIGHT lower lobe posteriorly this appears new from the prior studies. Aortic calcification. Normal caliber thoracic aorta. Coronary calcification. No mediastinal or hilar lymphadenopathy. Adrenal glands are normal. Fatty atrophy of the pancreas. Splenic artery calcification. Mild thoracic curve. Hypertrophic changes thoracic spine. CT/CT lung screening [id number] IMPRESSION: Increasing size of the previously described LEFT upper lobe nodule measuring 8 mm today. Recommend further evaluation with PET/CT and 6-month follow-up. LUNG-RADS: 4B-Suspicious FOLLOW UP: PET/CT recommended
== END 2025-07-16 10:50 | disposition home or self-care (01) ==
LOC: RAD 10:50
PROVIDERS: PCP Nurse Practitioner; Visit Provider Nurse Practitioner Family
DX: F17.210 Nicotine dependence, cigarettes, uncomplicated (principal); R91.8 Other nonspecific abnormal finding of lung field; I70.0 Atherosclerosis of aorta; I25.10 Atherosclerotic heart disease of native coronary artery without angina pectoris; K86.89 Other specified diseases of pancreas
CPT/HCPCS: 71271

== ENCOUNTER → 2025-07-23 11:10 | Outpatient (BNVA) | payer OTHER, SELFPAY | PROVIDERS: PCP Nurse Practitioner; Visit Provider Internal Medicine | DX: E03.9 Hypothyroidism, unspecified (principal); E11.9 Type 2 diabetes mellitus without complications; E66.9 Obesity, unspecified; E55.9 Vitamin D deficiency, unspecified; E53.8 Deficiency of other specified B group vitamins; Z79.4 Long term (current) use of insulin | CPT/HCPCS: 99214 ==